=== PATIENT | male | born 1950 | race Caucasian/White ===

== ENCOUNTER → 2018-04-26 | Day surgery (SDC) | payer OTHER ==
[2018-04-22 09:59] LABS: Basophils # (auto) 0 uL; Basophils % (auto) 0.8 % (0.0-2.0); Eosinophils # (auto) 0.4 uL; Eosinophils % (auto) 6.4 % (0.0-7.0); Hematocrit 44.1 % (41.0-53.0); Hemoglobin 15.1 g/dL (13.5-17.5); Lymphocytes # (auto) 1.4 uL; Lymphocytes % (auto) 25.6 % (10.0-50.0); Mean Corpuscular Hemoglobin 31.2 pg (28.0-32.0); Mean Corpuscular Hgb Conc. 34.4 g/dL (32.0-36.0); Mean Corpuscular Volume 90.9 fL (80.0-100.0); Monocytes # (auto) 0.5 uL; Monocytes % (auto) 8.3 % (0.0-12.0); Neutrophils # (auto) 3.3 uL; Neutrophils % (auto) 58.9 % (37.0-80.0); Platelet Count (auto) 210 10^3/uL (140-450); Red Blood Cells 4.85 10^6/uL (4.5-5.90); Red Cell Distribution Width 13.6 % (11.8-14.3); White Blood Cell 5.6 10^3/uL (4.4-10.8)
[2018-04-22 11:01] LABS: INR 0.99 (0.9-1.15); Partial Thromboplastin Time 30.1 sec (23.78-33.04); Prothrombin Time 10.6 sec (9.27-12.13)
[~2018-04-26] VITALS: Ht 170.2 cm; Wt 109.8 kg
[~2018-04-26] MED LIST: FLUMAZENIL 0.1 MG/ML INJ 10ML MDV IV ONE; LIDOCAINE VISCOUS 2% 15ML UD ONE; NALOXONE HCL 0.4 MG/ML VIAL ONE; OMEP20TA PO; diphenhdrAMINE HCL 50 MG/1 ML VL ONE
[2018-04-26] MEDS: MIDAZOLAM HCL 5 MG/ML-1ML VIAL ONE ×2 (09:11→09:14)
[2018-04-26] MEDS: fentaNYL CITRATE 100 MCG/2 ML VL ONE ×2 (09:11→09:14)
[2018-04-26 10:01] VITALS: BP 119/72
== END | disposition home or self-care (01) ==
LOC: GI 07:43
PROVIDERS: ATTEND Internal Medicine Gastroenterology
DX: Z12.11 Encounter for screening for malignant neoplasm of colon (principal); D12.4 Benign neoplasm of descending colon; K29.50 Unspecified chronic gastritis without bleeding; K57.30 Diverticulosis of large intestine without perforation or abscess without bleeding; K64.8 Other hemorrhoids; K21.9 Gastro-esophageal reflux disease without esophagitis; Z79.899 Other long term (current) drug therapy; Z98.890 Other specified postprocedural states
CPT/HCPCS: 36415; 43249; 45380; 85025; 85610; 85730; 88305; 88342; A6257; J1200; J2250; J2310; J3010; J7030; 99152

== ENCOUNTER → 2018-12-09 | Outpatient (CLI) | payer OTHER ==
[~2018-12-09] MED LIST changes: -FLUMAZENIL 0.1 MG/ML INJ 10ML MDV IV ONE; -LIDOCAINE VISCOUS 2% 15ML UD ONE; -NALOXONE HCL 0.4 MG/ML VIAL ONE; -diphenhdrAMINE HCL 50 MG/1 ML VL ONE
[2018-12-09 08:37] LABS: Basophils # (auto) 0 uL; Basophils % (auto) 0.7 % (0.0-2.0); Eosinophils # (auto) 0.3 uL; Eosinophils % (auto) 6.1 % (0.0-7.0); Hematocrit 45.2 % (41.0-53.0); Hemoglobin 15.2 g/dL (13.5-17.5); Lymphocytes # (auto) 1.4 uL; Lymphocytes % (auto) 27.4 % (10.0-50.0); Mean Corpuscular Hemoglobin 30.6 pg (28.0-32.0); Mean Corpuscular Hgb Conc. 33.6 g/dL (32.0-36.0); Mean Corpuscular Volume 91.1 fL (80.0-100.0); Monocytes # (auto) 0.4 uL; Monocytes % (auto) 7.7 % (0.0-12.0); Neutrophils # (auto) 3.1 uL; Neutrophils % (auto) 58.1 % (37.0-80.0); Nucleated Red Blood Cells % 0.1 %; Platelet Count (auto) 207 10^3/uL (140-450); Red Blood Cells 4.96 10^6/uL (4.5-5.90); Red Cell Distribution Width 13.6 % (11.8-14.3); White Blood Cell 5.2 10^3/uL (4.4-10.8)
[2018-12-09 08:44] LABS: Urine Bacteria NONE SEEN /hpf (None Seen); Urine Blood Negative /uL (Negative); Urine Specific Gravity 1.016 (1.001-1.035); Urine WBC None Seen /hpf (0 - 3)
[2018-12-09 09:21] LABS: Albumin 4.2 g/dL (3.4-5.0); BUN/Creatinine Ratio 14.7; Calcium 9.6 mg/dL (8.5-10.1); Potassium 4.5 mmol/L (3.5-5.1)
[2018-12-09 09:25] LABS: Bilirubin, Total 0.6 mg/dL (0.2-1.0)
== END | disposition home or self-care (01) ==
LOC: LAB 08:12
PROVIDERS: ATTEND Family Medicine
DX: E78.2 Mixed hyperlipidemia (principal); K21.9 Gastro-esophageal reflux disease without esophagitis; E78.1 Pure hyperglyceridemia; E66.09 Other obesity due to excess calories; Z72.0 Tobacco use
CPT/HCPCS: 36415; 80053; 80061; 81001; 84153; 85025

== ENCOUNTER → 2019-12-26 | Outpatient (CLI) | payer OTHER ==
[2019-12-26 09:22] LABS: Basophils # (auto) 0 10 ^3/uL (0-0.2); Basophils % (auto) 0.4 % (0.0-2.0); Eosinophils # (auto) 0.3 10 ^3/uL (0-0.8); Eosinophils % (auto) 5.5 % (0.0-7.0); Hematocrit 43.7 % (41.0-53.0); Hemoglobin 14.9 g/dL (13.5-17.5); Lymphocytes # (auto) 1.7 10 ^3/uL (0.4-5.4); Lymphocytes % (auto) 27.3 % (10.0-50.0); Mean Corpuscular Hemoglobin 30.8 pg (28.0-32.0); Mean Corpuscular Volume 90.7 fL (80.0-100.0); Monocytes # (auto) 0.5 10 ^3/uL (0-1.3); Monocytes % (auto) 8.5 % (0.0-12.0); Neutrophils # (auto) 3.6 10 ^3/uL (1.6-8.6); Neutrophils % (auto) 58.3 % (37.0-80.0); Nucleated Red Blood Cells % 0.2 %; Platelet Count (auto) 198 10^3/uL (140-450); Red Blood Cells 4.82 10^6/uL (4.5-5.90); Red Cell Distribution Width 13.7 % (11.8-14.3); White Blood Cell 6.2 10^3/uL (4.4-10.8)
[2019-12-26 09:25] LABS: Urine Bacteria NONE SEEN /hpf (None Seen); Urine Blood Negative /uL (Negative); Urine Specific Gravity 1.019 (1.001-1.035); Urine WBC 1 /hpf (0 - 3)
[2019-12-26 09:49] LABS: Calcium 9.1 mg/dL (8.5-10.1); Potassium 4.2 mmol/L (3.5-5.1)
[2019-12-26 09:55] LABS: BUN/Creatinine Ratio 18.3
== END | disposition home or self-care (01) ==
LOC: LAB 08:31
PROVIDERS: ATTEND Family Medicine
DX: Z12.5 Encounter for screening for malignant neoplasm of prostate (principal); E78.2 Mixed hyperlipidemia; K21.9 Gastro-esophageal reflux disease without esophagitis; E66.09 Other obesity due to excess calories; G83.9 Paralytic syndrome, unspecified; Z80.42 Family history of malignant neoplasm of prostate
CPT/HCPCS: 36415; 80048; 80061; 81001; 83036; 84153; 85025

== ENCOUNTER → 2020-04-05 | Outpatient (CLI) | payer OTHER ==
[2020-04-05 09:13] LABS: Albumin 4.2 g/dL (3.4-5.0); Calcium 9.3 mg/dL (8.5-10.1); Potassium 4.8 mmol/L (3.5-5.1)
[2020-04-05 09:17] LABS: BUN/Creatinine Ratio 17.4; Bilirubin, Total 0.6 mg/dL (0.2-1.0); Total Protein 8.1 g/dL (6.4-8.2)
== END | disposition home or self-care (01) ==
LOC: LAB 08:25
PROVIDERS: ATTEND Family Medicine
DX: E78.1 Pure hyperglyceridemia (principal); R73.03 Prediabetes
CPT/HCPCS: 36415; 80053; 80061

== ENCOUNTER → 2021-05-22 | Outpatient (CLI) | payer OTHER ==
[2021-05-22 09:49] LABS: Basophils # (auto) 0 10 ^3/uL (0-0.2); Basophils % (auto) 0.5 % (0.0-2.0); Eosinophils # (auto) 0.3 10 ^3/uL (0-0.8); Eosinophils % (auto) 5.7 % (0.0-7.0); Hematocrit 41.4 % (41.0-53.0); Hemoglobin 14.2 g/dL (13.5-17.5); Lymphocytes # (auto) 1.4 10 ^3/uL (0.4-5.4); Lymphocytes % (auto) 23.8 % (10.0-50.0); Mean Corpuscular Hgb Conc. 34.4 g/dL (32.0-36.0); Monocytes # (auto) 0.5 10 ^3/uL (0-1.3); Monocytes % (auto) 8.1 % (0.0-12.0); Neutrophils # (auto) 3.6 10 ^3/uL (1.6-8.6); Neutrophils % (auto) 61.9 % (37.0-80.0); Nucleated Red Blood Cells % 0.1 %; Red Cell Distribution Width 13.3 % (11.8-14.3); White Blood Cell 5.9 10^3/uL (4.4-10.8)
[2021-05-22 10:52] LABS: Potassium 4.3 mmol/L (3.5-5.1)
[2021-05-22 11:08] LABS: Albumin 4.2 g/dL (3.4-5.0); BUN/Creatinine Ratio 16.7; Bilirubin, Total 0.6 mg/dL (0.2-1.0); Calcium 9.6 mg/dL (8.5-10.1); Total Protein 7.9 g/dL (6.4-8.2)
== END | disposition home or self-care (01) ==
LOC: LAB 08:46
PROVIDERS: ATTEND Student in an Organized Health Care Education/Training Program
DX: Z00.00 Encounter for general adult medical examination without abnormal findings (principal); I10 Essential (primary) hypertension; E78.5 Hyperlipidemia, unspecified; E66.01 Morbid (severe) obesity due to excess calories
CPT/HCPCS: 36415; 80053; 80061; 83036; 85025

== ENCOUNTER → 2021-11-21 | Outpatient (CLI) | payer OTHER ==
[2021-11-21 09:19] LABS: BUN/Creatinine Ratio 17.8; Calcium 9.2 mg/dL (8.5-10.1); Potassium 4.6 mmol/L (3.5-5.1)
== END | disposition home or self-care (01) ==
LOC: LAB 07:45
PROVIDERS: ATTEND Student in an Organized Health Care Education/Training Program
DX: Z12.11 Encounter for screening for malignant neoplasm of colon (principal); E11.69 Type 2 diabetes mellitus with other specified complication; I10 Essential (primary) hypertension
CPT/HCPCS: 36415; 80048; 82043; 82274

== ENCOUNTER → 2022-05-22 | Outpatient (CLI) | payer OTHER ==
[2022-05-22 09:46] LABS: Basophils # (auto) 0 10 ^3/uL (0-0.2); Basophils % (auto) 0.7 % (0.0-2.0); Eosinophils # (auto) 0.3 10 ^3/uL (0-0.8); Eosinophils % (auto) 6.4 % (0.0-7.0); Hematocrit 40.9 % (41.0-53.0); Hemoglobin 14.4 g/dL (13.5-17.5); Lymphocytes # (auto) 1.1 10 ^3/uL (0.4-5.4); Lymphocytes % (auto) 23.6 % (10.0-50.0); Mean Corpuscular Hemoglobin 30.9 pg (28.0-32.0); Mean Corpuscular Hgb Conc. 35.3 g/dL (32.0-36.0); Mean Corpuscular Volume 87.6 fL (80.0-100.0); Monocytes # (auto) 0.4 10 ^3/uL (0-1.3); Monocytes % (auto) 7.6 % (0.0-12.0); Neutrophils % (auto) 61.7 % (37.0-80.0); Red Blood Cells 4.66 10^6/uL (4.5-5.90); Red Cell Distribution Width 13.9 % (11.8-14.3); White Blood Cell 4.9 10^3/uL (4.4-10.8)
[2022-05-22 10:31] LABS: Calcium 9.6 mg/dL (8.5-10.1); Potassium 4.1 mmol/L (3.5-5.1)
[2022-05-22 10:36] LABS: BUN/Creatinine Ratio 20.5; Bilirubin, Total 0.6 mg/dL (0.2-1.0); Total Protein 7.9 g/dL (6.4-8.2)
[2022-05-22 10:50] LABS: Micro Albumin 91.5 mg/L (0-30.0)
== END | disposition home or self-care (01) ==
LOC: LAB 09:02
PROVIDERS: ATTEND Student in an Organized Health Care Education/Training Program
DX: I12.9 Hypertensive chronic kidney disease with stage 1 through stage 4 chronic kidney disease, or unspecified chronic kidney disease (principal); E11.22 Type 2 diabetes mellitus with diabetic chronic kidney disease; N18.2 Chronic kidney disease, stage 2 (mild); E66.01 Morbid (severe) obesity due to excess calories; E78.2 Mixed hyperlipidemia
CPT/HCPCS: 36415; 80053; 80061; 82043; 82570; 83036; 85025

== ENCOUNTER → 2024-05-09 | Outpatient (CLI) | payer OTHER ==
[2024-05-09 08:21] LABS: Urine Bacteria None Seen /hpf (None Seen)
[2024-05-09 08:29] LABS: Basophils # (auto) 0 10 ^3/uL (0-0.2); Basophils % (auto) 0.5 % (0.0-2.0); Eosinophils # (auto) 0.5 10 ^3/uL (0-0.8); Eosinophils % (auto) 8.6 % (0.0-7.0); Hematocrit 44.2 % (41.0-53.0); Hemoglobin 14.5 g/dL (13.5-17.5); Lymphocytes # (auto) 1.2 10 ^3/uL (0.4-5.4); Lymphocytes % (auto) 20.3 % (10.0-50.0); Mean Corpuscular Hemoglobin 29.3 pg (28.0-32.0); Mean Corpuscular Hgb Conc. 32.9 g/dL (32.0-36.0); Mean Corpuscular Volume 88.9 fL (80.0-100.0); Monocytes # (auto) 0.6 10 ^3/uL (0-1.3); Monocytes % (auto) 9.7 % (0.0-12.0); Neutrophils # (auto) 3.5 10 ^3/uL (1.6-8.6); Neutrophils % (auto) 60.9 % (37.0-80.0); Platelet Count (auto) 170 10^3/uL (140-450); Red Blood Cells 4.97 10^6/uL (4.5-5.90); Red Cell Distribution Width 13.9 % (11.8-14.3); White Blood Cell 5.8 10^3/uL (4.4-10.8)
[2024-05-09 09:04] LABS: Urine Blood Negative /uL (Negative); Urine Clarity Clear (Clear); Urine Color Light-Yellow (Yellow); Urine Protein, UAD Negative (Negative); Urine Specific Gravity 1.012 (1.001-1.035); Urine Squamous Epithelial Cell None Seen /hpf (<5); Urine Urobilinogen Normal (Negative); Urine WBC < 1 /HPF (0-3)
[2024-05-09 09:05] LABS: Creatinine, Urine 77.65 mg/dL (30.0-125.0)
[2024-05-09 09:10] LABS: Alanine Aminotransferase 38 U/L (7-40); Alkaline Phosphatase 58 U/L (46-116); Anion Gap 9 (5-15); Aspartate Aminotransferase 31 U/L (13-40); BUN/Creatinine Ratio 13.1 (10.0-20.0); Blood Urea Nitrogen 13 mg/dL (9-23); Calcium 10.2 mg/dL (8.7-10.4); Carbon Dioxide 28 mmol/L (20-31); Chloride 102 mmol/L (98-107); LDL Cholesterol 46 mg/dL (< 100); Potassium 4.2 mmol/L (3.5-5.1); Sodium 139 mmol/L (136-145); Total Protein 7.4 g/dL (5.7-8.2); Triglycerides 141 mg/dL (< 150)
[2024-05-09 09:11] LABS: Bilirubin, Total 0.7 mg/dL (0.2-1.0); Cholesterol 103 mg/dL (< 200)
[2024-05-09 09:18] LABS: Albumin 4.9 g/dL (3.2-4.8); Glucose 135 mg/dL (74-106); HDL Cholesterol 35 mg/dL (40-59)
== END | disposition home or self-care (01) ==
LOC: LAB 08:08
PROVIDERS: ATTEND Nurse Practitioner
DX: I10 Essential (primary) hypertension (principal); E11.9 Type 2 diabetes mellitus without complications; E78.5 Hyperlipidemia, unspecified
CPT/HCPCS: 36415; 80053; 80061; 81001; 82043; 82570; 83036; 84443; 85025

== ENCOUNTER 2024-05-19 11:05 | Emergency (ER) | payer OTHER ==
[~2024-05-19] VITALS: Ht 170.2 cm; Wt 100.1 kg
[2024-05-19 12:24] LABS: Basophils # (auto) 0 10 ^3/uL (0-0.2); Basophils % (auto) 0.5 % (0.0-2.0); Eosinophils # (auto) 0.3 10 ^3/uL (0-0.8); Eosinophils % (auto) 5.8 % (0.0-7.0); Hemoglobin 14.3 g/dL (13.5-17.5); Lymphocytes # (auto) 0.7 10 ^3/uL (0.4-5.4); Lymphocytes % (auto) 12.4 % (10.0-50.0); Mean Corpuscular Hemoglobin 30.6 pg (28.0-32.0); Mean Corpuscular Volume 90.1 fL (80.0-100.0); Monocytes # (auto) 0.5 10 ^3/uL (0-1.3); Monocytes % (auto) 9.2 % (0.0-12.0); Neutrophils # (auto) 4.1 10 ^3/uL (1.6-8.6); Neutrophils % (auto) 72.1 % (37.0-80.0); Platelet Count (auto) 183 10^3/uL (140-450); Red Blood Cells 4.66 10^6/uL (4.5-5.90); White Blood Cell 5.7 10^3/uL (4.4-10.8)
[2024-05-19 12:33] LABS: Chloride 102 mmol/L (98-107); Potassium 4.2 mmol/L (3.5-5.1); Sodium 138 mmol/L (136-145)
[2024-05-19 12:34] LABS: Anion Gap 10 (5-15); Carbon Dioxide 26 mmol/L (20-31)
[2024-05-19 12:37] LABS: Calcium 10.4 mg/dL (8.7-10.4)
[2024-05-19 12:39] LABS: Glucose 95 mg/dL (74-106)
[2024-05-19 12:40] LABS: BUN/Creatinine Ratio 15.1 (10.0-20.0); Blood Urea Nitrogen 16 mg/dL (9-23)
[2024-05-19 12:44] LABS: Urine Bacteria None Seen /hpf (None Seen)
[2024-05-19 12:46] LABS: Lactic Acid w/Reflex 2.7 mmol/L (0.4-2.0)
[2024-05-19 12:55] LABS: Urine Blood Negative /uL (Negative); Urine Clarity Clear (Clear); Urine Color Light-Yellow (Yellow); Urine Protein, UAD Negative (Negative); Urine Specific Gravity 1.015 (1.001-1.035); Urine Squamous Epithelial Cell None Seen /hpf (<5); Urine Urobilinogen Normal (Negative); Urine WBC < 1 /HPF (0-3); Urine pH 5.5 (5.0-9.0)
[2024-05-19] MEDS: VANCOMYCIN 1GM/250ML KIT 250 ML IV ONE (13:00)
[2024-05-19] MEDS: TETANUS-DIPTH-ACEL PERTUSSIS 0.5ML SYR Tdap IM ONE (13:00)
--- NOTE | 2024-05-19 13:09 | ED.PDOC ---
History of Present Illness(SKN HPI Comments 73y M who presents to the ED for chief complaint of wound check. Pt states he sustained a wound on his left zhou 1 week ago when he stepped on a block and it accidentally flipped up and hit him on the zhou causing an abrasion/laceration. Within next 5 days, the area became red and swollen and painful.. Pt states he went to urgent care 2 days go and was dx with cellulitis, received IM Rocephin and was discharged on p.o. clindamycin. Pt states over the past 2 days, he has been continuing to have pain and noticed increased redness and swelling, return to urgent care for follow-up, and was referred to the ED for further evaluation. Pt in the ED, noted pain to the LLE but otherwise denies fever, chills, shortness of breath, chest pain, nausea, vomiting, or any associated symptoms. Pt in the ED,has noted wound to the L leg with redness and swelling with no noted purulence or associated discharge. Pt otherwise has noted temp of 97.9F, heart rate of 56, rr 18, BP of 122/57 and 02 sat of 97% on room air. Pt stated last tetanus is unknown. Pt otherwise denies any other symptoms at this time. Chief Complaint: Wound Check Time Seen by MD: 13:06 Primary Care Provider: [facility] History of Present Illness: Medications, Allergies Allergies: Coded Allergies: NO KNOWN ALLERGIES (Unverified , 04/22/18) Home Meds Reported Medications Omeprazole (Gnp Omeprazole) 20 Mg Tab, 40 MG PO DAILY, TAB 04/22/18 Information Source: Patient Mode of Arrival: Ambulatory Brought in by: self Past Medical History PAST MEDICAL HISTORY: DM, HTN Surgical History: Hernia Repair Family History Family History: Reviewed,noncontributory to illness Social History Smoker: Non-Smoker Alcohol: Denies ETOH Use Drugs: Denies Drug Use Lives In: Home Constitutional: denies: chills, diaphoresis, fatigue, fever, malaise, sweats, weakness, others EENTM: denies: blurred vision, double vision, ear bleeding, ear discharge, ear drainage, ear pain, ear ringing, eye pain, eye redness, hearing loss, mouth pain, mouth swelling, nasal discharge, nose bleeding, nose congestion, nose pain, photophobia, tearing, throat pain, throat swelling, voice changes, others Respiratory: denies: cough, hemoptysis, orthopnea, SOB at rest, shortness of breath, SOB with excertion, stridor, wheezing, others Cardiovascular: denies: chest pain, dizzy spells, diaphoresis, Dyspnea on exertion, edema, irregular heart beat, left arm pain, lightheadedness, palpitations, PND, syncope, others Gastrointestinal: denies: abdomen distended, abdominal pain, blood streaked bowels, constipated, diarrhea, dysphagia, difficulty swallowing, hematemesis, melena, nausea, poor appetite, poor fluid intake, rectal bleeding, rectal pain, vomiting, others Genitourinary: denies: burning, dysuria, flank pain, frequency, hematuria, incontinence, penile discharge, penile sore, pain, testicle pain, testicle swell ing, urgency, others Neurological: denies: dizziness, fainting, headache, left sided numbness, left sided weakness, numbness, paresthesia, pre-existing deficit, right sided numbness, right sided weakness, seizure, speech problems, tingling, tremors, weakness, others Musculoskeletal: denies: back pain, gout, joint pain, joint swelling, muscle pain, muscle stiffness, neck pain, others Integumetry: reports: wounds (LLE); denies: bruises, change in color, change in hair/nails, dryness, laceration, lesions, lumps, rash, others Allergic/Immunocompromised: denies: Difficulty Healing, Frequent Infections, Hives, Itching, others Hematologic/Lymphatic: denies: anemia, blood clots, easy bleeding, easy bruising, swollen glands, others Endocrine: denies: excessive hunger, excessive sweating, excessive thirst, excessive urination, flushing, intolerance to cold, intolerance to heat, unexplained weight gain, unexplained weight loss, others Psychiatric: denies: anxiety, bipolar disorder, depression, hopeless, panic disorder, schizophrenia, sleepless, suicidal, others All Other Systems: Reviewed and Negative Physical Exam General Appearance: No Apparent Distress HEENT: PERRL/EOMI Neck: Full Range of Motion, Normal Inspection Respiratory: Lungs Clear, No Accessory Muscle Use, No Respiratory Distress, Normal Breath Sounds Cardiovascular: No JVD, Regular Rate/Rhythm Breast Exam: Deferred Gastrointestinal: Non Tender, Soft Genitalia: Deferred Pelvic: Deferred Rectal: Deferred Extremities: Normal range of motion, No pedal edema, Other (L leg ant tibial area scab lesion with surrounding erythema, induration, tenderness) Neurologic: Alert (oriented x 4), Normal Affect, Normal Mood, Other (Ambulatory . No gross focal deficit.) Cerebellar Function: NOT DONE Reflexes: NOT DONE Skin: Dry, Warm, Other (Left anterior tibial area scabbed lesion with surrounding erythema, induration and tenderness.) Lymphatic: NOT DONE Was a procedure done? Was a procedure done?: No Differential Diagnosis (INTG) Differential Diagnosis: Puncture Wound Differential Diagnosis: Osteomyelitis Abscess: Abscess, Bacteremia, Cellulitis X-Ray, Labs, Meds, VS Vital Signs Date Time Temp Pulse Resp B/P (MAP) Pulse Ox O2 Delivery O2 Flow Rate FiO2 05/19/24 13:35 62 18 96 Room Air 05/19/24 13:35 97.7 62 18 142/74 (96) 96 97.7 05/19/24 11:30 97.9 56 18 125/57 (79) 97 Lab Test 05/19/24 12:04 05/19/24 12:03 05/19/24 11:44 Range/Units White Blood Count 5.7 4.4-10.8 10^3/uL Red Blood Count 4.66 4.5-5.90 10^6/uL Hemoglobin 14.3 13.5-17.5 g/dL Hematocrit 42.0 41.0-53.0 % Mean Corpuscular Volume 90.1 80.0-100.0 fL Mean Corpuscular Hemoglobin 30.6 28.0-32.0 pg Mean Corpuscular Hemoglobin Concent 34.0 32.0-36.0 g/dL Red Cell Distribution Width 14.0 11.8-14.3 % Platelet Count 183 140-450 10^3/uL Mean Platelet Volume 8.6 6.9-10.8 fL Neutrophils (%) (Auto) 72.1 37.0-80.0 % Lymphocytes (%) (Auto) 12.4 10.0-50.0 % Monocytes (%) (Auto) 9.2 0.0-12.0 % Eosinophils (%) (Auto) 5.8 0.0-7.0 % Basophils (%) (Auto) 0.5 0.0-2.0 % Neutrophils # (Auto) 4.1 1.6-8.6 10 ^3/uL Lymphocytes # (Auto) 0.7 0.4-5.4 10 ^3/uL Monocytes # (Auto) 0.5 0-1.3 10 ^3/uL Eosinophils # (Auto) 0.3 0-0.8 10 ^3/uL Basophils # (Auto) 0 0-0.2 10 ^3/uL Nucleated Red Blood Cells 0.0 % Sodium Level 138 136-145 mmol/L Potassium Level 4.2 3.5-5.1 mmol/L Chloride Level 102 98-107 mmol/L Carbon Dioxide Level 26 20-31 mmol/L Anion Gap 10 5-15 Blood Urea Nitrogen 16 9-23 mg/dL Creatinine 1.06 0.700-1.30 mg/dL Glomerular Filtration Rate Calc 74 >90 mL/min BUN/Creatinine Ratio 15.1 10.0-20.0 Serum Glucose 95 74-106 mg/dL Calcium Level 10.4 8.7-10.4 mg/dL B-Type Natriuretic Peptide 97.30 0-100 pg/mL Lactic Acid Level 2.7 *H 0.4-2.0 mmol/L Urine Color Light-yellow Yellow Urine Clarity Clear Clear Urine pH 5.5 5.0-9.0 Urine Specific Crocker 1.015 1.001-1.035 Urine Protein Negative Negative Urine Ketones Negative Negative Urine Blood Negative Negative /uL Urine Nitrite Negative Negative Urine Bilirubin Negative Negative Urine Urobilinogen Normal Negative mg/dL Urine Leukocyte Esterase Negative Negative /uL Urine RBC <1 0 - 3 /hpf Urine Microscopic WBC < 1 0-3 /HPF Urine Squamous Epithelial Cells None seen <5 /hpf Urine Bacteria None seen None Seen /hpf Urine Glucose Normal Normal mg/dL POC Glucose 108 H 70-106 mg/dl Current Medications Medications (Trade) Dose Ordered Sig/Tylor Route Start Time Stop Time Status Last Admin Sodium Chloride 3,000 ml @ 1,000 mls/hr Q3H ONCE IV 05/19/24 13:00 05/19/24 15:59 05/19/24 13:28 Piperacillin Sod/ Tazobactam Sod 100 ml @ 100 mls/hr ONCE ONCE IV 05/19/24 13:00 05/19/24 13:59 05/19/24 13:30 Ketorolac Tromethamine (Toradol Injection) 30 mg ONCE ONCE IV 05/19/24 13:00 05/19/24 13:01 DC 05/19/24 13:35 Acetaminophen/ Hydrocodone Bitart (Westpoint 5/325MG Tab) 1 tab ONCE ONCE PO 05/19/24 13:00 05/19/24 13:01 DC 05/19/24 13:29 Diphtheria/ Tetanus/Acell Pertussis (Boostrix T-Dap) 0.5 ml ONCE ONCE IM 05/19/24 13:00 05/19/24 13:01 DC 05/19/24 13:00 X-Ray, Labs, Meds, VS Comment 73-year-old male with a history of hypertension and diabetes presenting with a left leg wound with persistent and worsening redness, swelling and pain despite IM Rocephin and p.o. clindamycin Vitals remarkable for heart rate 56, BP 125/57 Exam remarkable for left anterior tibial area scabbed lesion with surrounding erythema, induration and tenderness CBC, metabolic panel, BNP and UA unremarkable Lactic 2.7 Patient treated with the following in the ED: 3 L 0.9 normal saline IV bolus, Zosyn 4.5 g IV, vancomycin 1 g IV, Toradol 30 mg IV, Westpoint 5/325 mg IV On re-evaluation, patient states pain has improved. Vitals are stable. Plan is to admit the patient for IV antibiotics and lactate trend to rule out sepsis. Patient was evaluated by the hospitalist for admission. Stated to her that he changed his mind and did not want to be admitted. He was advised regarding the risks including persistent or worsening symptoms, loss of limb and/or . He expressed understanding and insisted on leaving against medical advice. He was alert, oriented x4 and capable of making informed decisions at the time he signed out against medical advice. I will prescribe doxycycline. He was advised to continue clindamycin until finished. Time of 1ST Reevaluation: 13:35 Reevaluation 1ST: Unchanged Patient Education/Counseling: Diagnosis, Treatment Family Education/Counseling: No Family Present Additional Information -Reviewed patient's previous visit(s): - The following tests were ordered, and results were reviewed by me: cbc, bnp, ua, bmp, lactic acid, blood culture, - Additional information was gathered from interviewing the following independent Historian: pt - I reviewed and agreed with the following test results read by other provider: none - I discussed treatments and results with medical personnel and: patient Comprehensive systems review obtained and negative except for what is stated in the HPI. Departure 1 Departure Time of Disposition: 13:17 Impression: Primary Impression: Wound cellulitis Disposition: LEFT AGAINST MEDICAL ADVICE Admit to: Med Surg Condition: Fair Additional Instructions: You are leaving against medical advice. The risks of leaving prior to comple tion of treatment include loss of your leg, persistent or worsening symptoms or . Follow-up with your primary doctor as soon as possible for re- evaluation. Return to ER for fever, persistent or worsening symptoms. I have prescribed an additional antibiotic and pain medication. Continue taking clindamycin until finished. e-Prescriptions Ibuprofen Micronized (Ibuprofen) 800 Mg Tab 800 MG PO Q8HP PRN, #30 TAB prn pain, take with food Prov: JOSHUA NEWSOME MD 05/19/24 Doxycycline (Monohydrate) (Doxycycline) 100 Mg Tab 100 MG PO BID for 10 Days, #20 TAB Prov: JOSHUA NEWSOME MD 05/19/24 Discharged With: Self Critical Care Note Critical Care Time?: No Stability Stability form required: No Heart Score Heart Score: Heart Score Response (Comments) Value History N/A 0 EKG N/A 0 Age N/A 0 Risk Factors N/A 0 Troponin N/A 0 Total 0 I personally scribed [facility] on 05/19/24 at 13: 09. Electronically submitted by Jay[facility] Conteh ([facility] JOSHUA NWESOME MD May 19, 2024 13:09
[2024-05-19] MEDS: SODIUM CHLORIDE 0.9% 3,000 ML IV ONE (13:28)
[2024-05-19] MEDS: HYDROcodone-ACET 5/325MG TAB PO ONE (13:29)
[2024-05-19] MEDS: PIPERACILLIN-TAZO 4.5GM 100 ML IV ONE (13:30)
[2024-05-19 13:35] VITALS: BP 142/74; PULSE 62; RESP 18; TEMP 97.7; O2SAT 96
[2024-05-19] MEDS: KETOROLAC TROMETH 30 MG/ML 1ML VIAL IV ONE (13:35)
[2024-05-19] MEDS ORDERED: IBUP-1455 PO (13:41)
[2024-05-19] MEDS ORDERED: DOXY-346 PO (13:41)
== END 2024-05-19 14:24 | disposition left against medical advice (07) ==
LOC: ER 11:05
DX: L03.116 Cellulitis of left lower limb (principal); E11.9 Type 2 diabetes mellitus without complications; I10 Essential (primary) hypertension; Z90.89 Acquired absence of other organs
CPT/HCPCS: 36415; 80048; 81001; 82947; 83605; 83880; 85025; 87040; 90471; 90715; 96365; 96375; 99284; J1885; J2543; J7030; 82962

== ENCOUNTER → 2024-12-29 | Outpatient (CLI) | payer OTHER ==
[~2024-12-29] MED LIST changes: +DOXY-346 PO; +IBUP-1455 PO
[2024-12-29 11:12] LABS: Alanine Aminotransferase 34 U/L (7-40); Alkaline Phosphatase 54 U/L (46-116); Anion Gap 9 (5-15); BUN/Creatinine Ratio 17.3 (10.0-20.0); Blood Urea Nitrogen 17 mg/dL (9-23); Calcium 10.3 mg/dL (8.7-10.4); Carbon Dioxide 29 mmol/L (20-31); Chloride 101 mmol/L (98-107); Potassium 4.3 mmol/L (3.5-5.1); Sodium 139 mmol/L (136-145); Total Protein 7.6 g/dL (5.7-8.2)
[2024-12-29 11:31] LABS: Albumin 4.8 g/dL (3.2-4.8); Glucose 125 mg/dL (74-106)
[2024-12-29 15:31] LABS: Triglycerides 180 mg/dL (< 150)
[2024-12-29 15:33] LABS: Bilirubin, Total 0.7 mg/dL (0.2-1.0); Cholesterol 124 mg/dL (< 200); HDL Cholesterol 37 mg/dL (40-59)
== END | disposition home or self-care (01) ==
LOC: LAB 09:18
PROVIDERS: ATTEND Nurse Practitioner
DX: I10 Essential (primary) hypertension (principal); E11.9 Type 2 diabetes mellitus without complications
CPT/HCPCS: 36415; 80053; 80061; 83036